=== PATIENT | male | born 1965 | race Caucasian/White ===

== ENCOUNTER 2016-11-18 15:56 | Emergency (ER) | payer SELFPAY ==
[~2016-11-18] VITALS: Ht 185.4 cm; Wt 94.0 kg
[2016-11-18 15:58] VITALS: BP 206/104; PULSE 120; RESP 18; TEMP 97.5; O2SAT 98
--- NOTE | 2016-11-18 16:05 | PD ---
Physical Exam Date Seen by Provider: Nov 18, 2016 Time Seen by Provider: 16:01 Narrative Pt is a 51 y/o male presenting to the ED with Flu-like symptoms since last week. Today pt states he is week, feels as if he is going to pass out. Pt has had 1-2 loose watery stools a day. Pt is a diabetic, he has not been on medications in years. Decreased appetite. No vomiting. Hx of HTN on no meds. Data Data Last Documented VS Vital Signs Date Time Temp Pulse Resp B/P Pulse Ox O2 Delivery O2 Flow Rate FiO2 11/18/16 15:58 97.5 120 18 206/104 98 MDM Supervised Visit with ADÁN: Vivi Lemon Nov 18, 2016 16:05
[2016-11-18] MEDS ORDERED: RESP: ALBUTEROL 2.5 MG/IPRATROPIUM 0.5 MG NEB (SCH) INH ONE (16:30)
[2016-11-18] MEDS ORDERED: SODIUM CHLOR 0.9% 1000 ML INJ 1,000 ML IV ONE ×2 (16:30→18:30)
--- NOTE | 2016-11-18 16:31 | PD ---
HPI Chief Complaint: Syncope/Near-Syncope Time Seen by Provider: 16:28 Travel History International Travel<30 days: No Contact w/Intl Traveler<30days: No Traveled to known affect area: No History of Present Illness HPI 51-year-old male presents to the emergency department for evaluation of flulike symptoms for 6 days. He states he has had subjective fevers, body aches, generalized weakness, lethargic, decreased appetite, intermittent shortness of breath. He denies any chest pain. No abdominal pain. No vomiting. He does report intermittent diarrhea stating he has had 2 episodes today. He denies any blood in his stool. He states he feels like he is going to pass out. He states "I may have passed out today". Patient reports history of hypertension and type 2 diabetes. He states that he was on lisinopril, glipizide, metformin , but has not taken these in approximately 2 years. PFSH Past Medical History Diabetes: Yes Patient Takes Glucophage: No Hypertension: Yes Past Surgical History Abdominal Surgery: Yes (hernia repair) Social History Alcohol Use: Yes (socially) Tobacco Use: No Substance Use: No Allergies-Medications (Allergen,Severity, Reaction): Coded Allergies: No Known Allergies (Unverified , 11/18/16) Reported Meds & Prescriptions Reported Meds & Active Scripts Active Proair Hfa 8.5 GM Inh (Albuterol Sulfate) 90 Mcg/Act Aer 1 Puff INH Q4H PRN 108 mcg/actuation Zithromax Z-Jesse (Azithromycin) 250 Mg Dspk 250 Mg PO DIRECTED 500 MG (2 tabs) day 1, then 1 tab days 2-5. Lisinopril 10 Mg Tab 10 Mg PO DAILY Metformin (Metformin HCl) 500 Mg Tab 500 Mg PO BIDPC With meals Review of Systems Except as stated in HPI: all other systems reviewed are Neg Physical Exam Narrative GENERAL: Well-nourished, well-developed male patient, afebrile. SKIN: Focused skin assessment warm/dry. HEAD: Normocephalic. Atraumatic. EYES: No scleral icterus. No injection or drainage. NECK: Supple, trachea midline. No JVD or lymphadenopathy. CARDIOVASCULAR: Regular rate and rhythm without murmurs, gallops, or rubs. RESPIRATORY: Breath sounds equal bilaterally. No accessory muscle use. Lungs sounds are coarse with scattered rhonchi and expiratory wheezes. GASTROINTESTINAL: Abdomen soft, non-tender, nondistended. MUSCULOSKELETAL: No cyanosis, or edema. BACK: Nontender without obvious deformity. No CVA tenderness. Data Data Last Documented VS Vital Signs Date Time Temp Pulse Resp B/P Pulse Ox O2 Delivery O2 Flow Rate FiO2 11/18/16 17:52 102 20 204/96 97 Room Air 11/18/16 16:40 21 11/18/16 15:58 97.5 Orders Electrocardiogram (11/18/16 16:06) Complete Blood Count With Diff (11/18/16 16:06) Comprehensive Metabolic Panel (11/18/16 16:06) Lactic Acid Sepsis Protocol (11/18/16 16:06) Magnesium (Mg) (11/18/16 16:06) Lipase (11/18/16 16:06) Ckmb (Isoenzyme) Profile (11/18/16 16:06) Troponin I (11/18/16 16:06) Urinalysis - C+S If Indicated (11/18/16 16:06) Influenzae A/B Antigen (11/18/16 16:06) Blood Culture (11/18/16 16:06) Blood Glucose (11/18/16 16:06) Ecg Monitoring (11/18/16 16:06) Iv Access Insert/Monitor (11/18/16 16:06) Oximetry (11/18/16 16:06) Oxygen Administration (11/18/16 16:06) Albuterol-Ipratropium Neb (Duoneb Neb) (11/18/16 16:30) Sodium Chlor 0.9% 1000 Ml Inj (Ns 1000 M (11/18/16 16:30) Chest, Single Ap (11/18/16 ) Urine Culture (11/18/16 16:25) Sodium Chlor 0.9% 1000 Ml Inj (Ns 1000 M (11/18/16 18:30) Labs Laboratory Tests Test 11/18/16 11/18/16 16:17 16:25 White Blood Count 7.1 TH/MM3 Red Blood Count 5.88 MIL/MM3 Hemoglobin 16.5 GM/DL Hematocrit 49.1 % Mean Corpuscular Volume 83.5 FL Mean Corpuscular Hemoglobin 28.1 PG Mean Corpuscular Hemoglobin 33.7 % Concent Red Cell Distribution Width 13.5 % Platelet Count 179 TH/MM3 Mean Platelet Volume 8.2 FL Neutrophils (%) (Auto) 66.1 % Lymphocytes (%) (Auto) 23.5 % Monocytes (%) (Auto) 9.0 % Eosinophils (%) (Auto) 1.0 % Basophils (%) (Auto) 0.4 % Neutrophils # (Auto) 4.7 TH/MM3 Lymphocytes # (Auto) 1.7 TH/MM3 Monocytes # (Auto) 0.6 TH/MM3 Eosinophils # (Auto) 0.1 TH/MM3 Basophils # (Auto) 0.0 TH/MM3 CBC Comment DIFF FINAL Differential Comment Sodium Level 135 MEQ/L Potassium Level 3.7 MEQ/L Chloride Level 100 MEQ/L Carbon Dioxide Level 22.6 MEQ/L Anion Gap 12 MEQ/L Blood Urea Nitrogen 16 MG/DL Creatinine 0.97 MG/DL Estimat Glomerular Filtration 82 ML/MIN Rate Random Glucose 298 MG/DL Lactic Acid Level 2.0 mmol/L Calcium Level 8.8 MG/DL Magnesium Level 2.1 MG/DL Total Bilirubin 0.8 MG/DL Aspartate Amino Transf 17 U/L (AST/SGOT) Alanine Aminotransferase 24 U/L (ALT/SGPT) Alkaline Phosphatase 70 U/L Total Creatine Kinase 68 U/L Troponin I LESS THAN 0.02 NG/ML Total Protein 8.4 GM/DL Albumin 3.6 GM/DL Lipase 134 U/L Urine Color YELLOW Urine Turbidity CLEAR Urine pH 5.5 Urine Specific [place] 1.048 Urine Protein 30 mg/dL Urine Glucose (UA) 1000 mg/dL Urine Ketones 10 mg/dL Urine Occult Blood NEG Urine Nitrite NEG Urine Bilirubin NEG Urine Urobilinogen 2.0 MG/DL Urine Leukocyte Esterase NEG Urine RBC 1 /hpf Urine WBC 2 /hpf Urine Squamous Epithelial <1 /hpf Cells Urine Bacteria RARE /hpf Urine Mucus MANY /lpf Microscopic Urinalysis Comment CATH-CULTURE IND MDM Medical Decision Making Medical Screen Exam Complete: Yes Emergency Medical Condition: Yes Medical Record Reviewed: Yes Interpretation(s) Last Impressions Chest X-Ray 11/18/16 0000 Signed Impressions: Service Date/Time: Friday, November 18, 2016 17:19 - CONCLUSION: 1. No acute cardiopulmonary disease. Mango Ferguson MD Differential Diagnosis Pneumonia versus viral syndrome versus influenza versus electrolyte abnormality versus dehydration Narrative Course 51-year-old male presents to the emergency department for evaluation of flulike symptoms for 6 days. EKG shows sinus tachycardia, heart rate 100, no acute changes. CBC, CMP, magnesium, lipase, CK, troponin, lactic acid, blood cultures 2, UA, and influenza, chest x-ray were ordered in triage. Patient is given DuoNeb 1 and normal saline 1 L IV bolus. CBC shows no acute abnormality. CMP shows glucose of 298. Magnesium is 2.1. Lipase is 134. CK is 68. Troponin is less than 0.02. Lactic acid is 2.0. Influenza is negative. Chest x-ray shows no acute cardiopulmonary disease. I Discussed case with attending physician, Dr. Sibley, who agrees with plan and disposition. The patient is given lisinopril 10 mg by mouth in the emergency department for hypertension. He'll be discharged with a prescription for lisinopril and metformin for diabetes and hypertension. He also be discharged with a prescription for an albuterol inhaler and azithromycin. He is given information on financial assistance of the [facility] clinic he is to return for any acute worsening of symptoms. Patient verbalizes agreement and understanding. Diagnosis Primary Impression: Bronchitis Additional Impressions: Hypertension Qualified Code: I10 - Essential hypertension Diabetes mellitus type 2 in obese Referrals: [facility] Patient Instructions: Acute Bronchitis (ED), Chronic Hypertension (ED), General Instructions, Type 2 Diabetes in Adults (ED) Additional Instructions: Take lisinopril as directed for hypertension. This is free of [employer]. Take metformin as directed for diabetes. This is also free of [employer]. Use albuterol inhaler as directed as needed for shortness of breath/wheezing. Take antibiotic as directed until gone. Follow-up with your primary care physician. Return to the emergency department for any acute worsening of symptoms. Med/Other Pt SpecificInfo: Prescription(s) given Scripts Albuterol 8.5 GM Inh (Proair Hfa 8.5 GM Inh)90 Mcg/Act Aer1 Puff INH Q4H PRN ( SHORTNESS OF BREATH) #1 INHALER Ref 0 108 mcg/actuation Prov:Keila Redding 11/18/16 Azithromycin (Zithromax Z-Jesse)250 Mg [id number] Mg PO DIRECTED #1 DSPK Ref 0 500 MG (2 tabs) day 1, then 1 tab days 2-5. Prov:Keila Redding 11/18/16 Lisinopril 10 Mg Tab10 Mg PO DAILY #30 TAB Ref 0 Prov:Keila Redding 11/18/16 Metformin 500 Mg [id number] Mg PO BIDPC #60 TAB Ref 0 With meals Prov:Keila Redding 11/18/16 Disposition: 01 DISCHARGE HOME Condition: Stable Keila Redding Nov 18, 2016 16:31
[2016-11-18 16:32] LABS: AUTOMATED NEUTROPHIL # 4.7 TH/MM3 (1.8-7.7); BASOPHIL % 0.4 % (0.0-2.0); EOSINOPHIL # 0.1 TH/MM3 (0-0.4); HEMATOCRIT 49.1 % (39.0-51.0); HEMO FLAGS DIFF FINAL; LYMPH % 23.5 % (9.0-44.0); LYMPHOCYTE # 1.7 TH/MM3 (1.0-4.8); MEAN CELL VOLUME 83.5 FL (80.0-100.0); MEAN CORPUSCULAR HEMOGLOBIN 28.1 PG (27.0-34.0); MEAN CORPUSCULAR HGB CONC 33.7 % (32.0-36.0); NEUT % 66.1 % (16.0-70.0); PLATELET COUNT 179 TH/MM3 (150-450); RED BLOOD COUNT 5.88 MIL/MM3 (4.50-5.90); RED CELL DISTRIBUTION WIDTH 13.5 % (11.6-17.2); WHITE BLOOD COUNT 7.1 TH/MM3 (4.0-11.0)
[2016-11-18 16:40] VITALS: O2SAT 99
[2016-11-18 16:51] LABS: ANION GAP 12 MEQ/L (5-15); AST (GOT) 17 U/L (15-37); BICARBONATE 22.6 MEQ/L (21.0-32.0); BLOOD UREA NITROGEN 16 MG/DL (7-18); CHLORIDE 100 MEQ/L (98-107); GLOMERULAR FILTRATION RATE 82 ML/MIN (>89); MAGNESIUM 2.1 MG/DL (1.5-2.5); POTASSIUM 3.7 MEQ/L (3.5-5.1); SODIUM (NA) 135 MEQ/L (136-145)
[2016-11-18 16:55] LABS: ALKALINE PHOSPHATASE 70 U/L (45-117); ALT (GPT) 24 U/L (12-78); TOTAL BILIRUBIN ADULT 0.8 MG/DL (0.2-1.0)
[2016-11-18 16:57] LABS: CREATINE KINASE 68 U/L (39-308)
[2016-11-18 16:57] LABS: BACTERIA, URINE RARE /hpf; BLOOD, URINE NEG (NEG); COMMENT (UR) CATH-CULTURE IND; CULTURE IF INDICATED CATH CULTURE IND; GLUCOSE,URINE 1000 mg/dL (NEG); KETONE, URINE 10 mg/dL (NEG); MUCUS URINE MANY /lpf (OCC); NITRITE,URINE NEG (NEG); PH, URINE 5.5 (5.0-8.5); SQUAMOUS EPITHELIAL CELL URINE <1 /hpf (0-5); URINE COLOR YELLOW (YELLW/STRAW)
--- NOTE | 2016-11-18 17:30 | RADRPT ---
EXAM DATE/TIME: 11/18/2016 17:19 [place] COMPARISON: No previous studies available for comparison. INDICATIONS : Cough. MEDICAL HISTORY : SURGICAL HISTORY : None. ENCOUNTER: Initial ACUITY: 1 day PAIN SCORE: 0/10 LOCATION: Bilateral chest FINDINGS: A single view of the chest demonstrates the lungs to be symmetrically aerated without evidence of mas s, infiltrate or effusion. The cardiomediastinal contours are unremarkable. Osseous structures are intact. CONCLUSION: 1. No acute cardiopulmonary disease. Mango Ferguson MD on November 18, 2016 at 17:22 Board Certified Radiologist. This report was verified electronically.
[2016-11-18 17:52] VITALS: BP 204/96; PULSE 102; RESP 20; O2SAT 97
[2016-11-18] MEDS ORDERED: ZITHTAB PO (18:38)
[2016-11-18] MEDS ORDERED: LISI10TA3 PO (18:38)
[2016-11-18] MEDS ORDERED: METF500T PO (18:38)
[2016-11-18] MEDS ORDERED: ALBUAER3 INH (18:38)
[2016-11-18] MEDS ORDERED: LISINOPRIL 10 MG TAB PO ONE (18:45)
--- NOTE | 2016-11-18 18:46 | PD ---
Data Data Last Documented VS Vital Signs Date Time Temp Pulse Resp B/P Pulse Ox O2 Delivery O2 Flow Rate FiO2 11/18/16 17:52 102 20 204/96 97 Room Air 11/18/16 16:40 21 11/18/16 15:58 97.5 Orders Electrocardiogram (11/18/16 16:06) Complete Blood Count With Diff (11/18/16 16:06) Comprehensive Metabolic Panel (11/18/16 16:06) Lactic Acid Sepsis Protocol (11/18/16 16:06) Magnesium (Mg) (11/18/16 16:06) Lipase (11/18/16 16:06) Ckmb (Isoenzyme) Profile (11/18/16 16:06) Troponin I (11/18/16 16:06) Urinalysis - C+S If Indicated (11/18/16 16:06) Influenzae A/B Antigen (11/18/16 16:06) Blood Culture (11/18/16 16:06) Blood Glucose (11/18/16 16:06) Ecg Monitoring (11/18/16 16:06) Iv Access Insert/Monitor (11/18/16 16:06) Oximetry (11/18/16 16:06) Oxygen Administration (11/18/16 16:06) Albuterol-Ipratropium Neb (Duoneb Neb) (11/18/16 16:30) Sodium Chlor 0.9% 1000 Ml Inj (Ns 1000 M (11/18/16 16:30) Chest, Single Ap (11/18/16 ) Urine Culture (11/18/16 16:25) Sodium Chlor 0.9% 1000 Ml Inj (Ns 1000 M (11/18/16 18:30) Lisinopril (Prinivil) (11/18/16 18:45) Labs Laboratory Tests Test 11/18/16 11/18/16 16:17 16:25 White Blood Count 7.1 TH/MM3 Red Blood Count 5.88 MIL/MM3 Hemoglobin 16.5 GM/DL Hematocrit 49.1 % Mean Corpuscular Volume 83.5 FL Mean Corpuscular Hemoglobin 28.1 PG Mean Corpuscular Hemoglobin 33.7 % Concent Red Cell Distribution Width 13.5 % Platelet Count 179 TH/MM3 Mean Platelet Volume 8.2 FL Neutrophils (%) (Auto) 66.1 % Lymphocytes (%) (Auto) 23.5 % Monocytes (%) (Auto) 9.0 % Eosinophils (%) (Auto) 1.0 % Basophils (%) (Auto) 0.4 % Neutrophils # (Auto) 4.7 TH/MM3 Lymphocytes # (Auto) 1.7 TH/MM3 Monocytes # (Auto) 0.6 TH/MM3 Eosinophils # (Auto) 0.1 TH/MM3 Basophils # (Auto) 0.0 TH/MM3 CBC Comment DIFF FINAL Differential Comment Sodium Level 135 MEQ/L Potassium Level 3.7 MEQ/L Chloride Level 100 MEQ/L Carbon Dioxide Level 22.6 MEQ/L Anion Gap 12 MEQ/L Blood Urea Nitrogen 16 MG/DL Creatinine 0.97 MG/DL Estimat Glomerular Filtration 82 ML/MIN Rate Random Glucose 298 MG/DL Lactic Acid Level 2.0 mmol/L Calcium Level 8.8 MG/DL Magnesium Level 2.1 MG/DL Total Bilirubin 0.8 MG/DL Aspartate Amino Transf 17 U/L (AST/SGOT) Alanine Aminotransferase 24 U/L (ALT/SGPT) Alkaline Phosphatase 70 U/L Total Creatine Kinase 68 U/L Troponin I LESS THAN 0.02 NG/ML Total Protein 8.4 GM/DL Albumin 3.6 GM/DL Lipase 134 U/L Urine Color YELLOW Urine Turbidity CLEAR Urine pH 5.5 Urine Specific [place] 1.048 Urine Protein 30 mg/dL Urine Glucose (UA) 1000 mg/dL Urine Ketones 10 mg/dL Urine Occult Blood NEG Urine Nitrite NEG Urine Bilirubin NEG Urine Urobilinogen 2.0 MG/DL Urine Leukocyte Esterase NEG Urine RBC 1 /hpf Urine WBC 2 /hpf Urine Squamous Epithelial <1 /hpf Cells Urine Bacteria RARE /hpf Urine Mucus MANY /lpf Microscopic Urinalysis Comment CATH-CULTURE IND MDM Supervised Visit with ADÁN: Yes Narrative Course The history, exam, and medical decision-making in the associated mid-level provider note were completed with my assistance. I reviewed and agree with the findings presented. I attest that I had a [id number] encounter with the patient on the same day, and personally performed and documented my assessment and findings in the medical record. *My assessment and Findings: 51 year-old man, flulike symptoms for the past week or so, on a lot of stress, worsening weakness, fatigue, near syncope. His a history diabetes been off blood sugar medicine for number of years. He looks generally well. He feels better after IV fluid hydration. He is a lot of wheezing on his pulmonary exam. No history of lung disease. We will recommend antibiotics for bronchitis , on dilators, treatment of diabetes metformin, outpatient follow-up. Diagnosis Primary Impression: Bronchitis Additional Impressions: Diabetes mellitus type 2 in obese Hypertension Qualified Code: I10 - Essential hypertension Referrals: [facility] Patient Instructions: General Instructions, Type 2 Diabetes in Adults (ED), Acute Bronchitis (ED), Chronic Hypertension (ED) Additional Instruction: Take lisinopril as directed for hypertension. This is free of [employer]. Take metformin as directed for diabetes. This is also free of [employer]. Use albuterol inhaler as directed as needed for shortness of breath/wheezing. Take antibiotic as directed until gone. Follow-up with your primary care physician. Return to the emergency department for any acute worsening of symptoms. Scripts Albuterol 8.5 GM Inh (Proair Hfa 8.5 GM Inh)90 Mcg/Act Aer1 Puff INH Q4H PRN ( SHORTNESS OF BREATH) #1 INHALER Ref 0 108 mcg/actuation Prov:Keila Redding 11/18/16 Azithromycin (Zithromax Z-Jesse)250 Mg [id number] Mg PO DIRECTED #1 DSPK Ref 0 500 MG (2 tabs) day 1, then 1 tab days 2-5. Prov:Keila Redding 11/18/16 Lisinopril 10 Mg Tab10 Mg PO DAILY #30 TAB Ref 0 Prov:Keila Redding 11/18/16 Metformin 500 Mg [id number] Mg PO BIDPC #60 TAB Ref 0 With meals Prov:Keila Redding 11/18/16 Disposition: 01 DISCHARGE HOME Condition: Stable Thai Sibley MD Nov 18, 2016 18:46
[2016-11-18 19:13] VITALS: BP 192/95; PULSE 94; RESP 18; O2SAT 98
--- NOTE | 2016-11-19 14:42 | EKG ---
Date Performed: 11/18/2016 Time Performed: 16:26:05 PTAGE: 51 years EKG: Sinus tachycardia Intraventricular conduction delay NO PREVIOUS TRACING DOCTOR: Diana Krause Interpretating Date/Time 11/19/2016 14:57:09
== END 2016-11-18 19:53 | disposition home or self-care (01) ==
LOC: NEPE 15:56
DX: J40 Bronchitis, not specified as acute or chronic (principal); I10 Essential (primary) hypertension; E11.9 Type 2 diabetes mellitus without complications; E66.9 Obesity, unspecified; Z79.84 Long term (current) use of oral hypoglycemic drugs
CPT/HCPCS: 71010; 80053; 81001; 82550; 83605; 83690; 83735; 84484; 85025; 87040; 87086; 87804; 93005; 94664; 96360; 96361; 99285; J7030